=== PATIENT | female | born 1950 | race Caucasian/White ===

== ENCOUNTER 2016-10-14 15:41 | Observation (INO) | payer BC, OTHER ==
--- NOTE | ~2016-10-14 | HP ---
History And Physical [place] [id number] [facility] [place]. [address] NAME: JAYNA KEENE : 46 STATUS : ADM IN [facility]#: [id number] AGE: 65 ADM/REG DATE : 10/14/16 MR#: [id number] REPORT SERV DATE: 10/14/16 DICTATED BY: JAROCHO ENG DATE: 10/14/16 REPORT STATUS : Draft TRANSCRIBED BY: MODNicky DATE: 10/14/16 DATE OF ADMISSION: 10/14/2016 ADMISSION DIAGNOSIS: Unstable angina. HISTORY OF PRESENT ILLNESS: Ms. Keene is a 65-year-old female, who presented to the ER at the request of her outpatient physician today for evaluation of chest discomfort and an abnormal EKG. She has a medical history notable for hypertension, hyperlipidemia, former tobacco abuse, COPD, obstructive sleep apnea, and depression/anxiety/fibromyalgia and actually was admitted last month for similar symptoms. At which time, she was observed in the [facility] and underwent a stress test that demonstrated no ischemia, was interpreted as low risk. She has had chest discomfort, which she describes as both a sharp pressure and a sharp pain for the past several months, and it is worse in the past two weeks. It was progressive to the point where she decided that she needed it re-evaluated and upon seeing her physician in the outpatient setting today, had an EKG that demonstrated left bundle branch block. This was noted to be a new change from her prior study and given these findings, she was transferred to [facility] ED via ambulance. EKG confirmed a left bundle branch block upon her arrival here and we were consulted in this context. Since my arrival, the patient's initial troponins come back within normal limits. She did have some improvement in her chest pain with nitroglycerin paste, but has not completely resolved. She feels frustrated that this pain has been ongoing and like a definitive answer. She reports some nausea, but no shortness of breath, no diaphoresis, no palpitations; presyncope; or syncope. PAST MEDICAL HISTORY: 1. Hypertension. 2. Hyperlipidemia. 3. COPD, former tobacco abuse. 4. Sleep apnea. 5. GERD. 6. Anxiety. 7. Depression. 8. Fibromyalgia. 9. Migraines. 10.Osteoarthritis. 11.Osteoporosis. SURGICAL HISTORY: Includes appendectomy, cholecystectomy, partial mastectomy on the right for localized breast cancer, bilateral knee surgery, carpal tunnel surgery, hysterectomy, tonsillectomy. MEDICATIONS: Reviewed per medical record. ALLERGIES: MORPHINE, WHICH CAUSES HALLUCINATIONS. CODEINE, WHICH CAUSES ANAPHYLAXIS. History And Physical [address] [place]. [address] NAME: JAYNA KEENE : 46 STATUS : ADM IN PAT#: [id number] AGE: 65 ADM/REG DATE : 10/14/16 MR#: [id number] REPORT SERV DATE: 10/14/16 DICTATED BY: JAROCHO ENG DATE: 10/14/16 REPORT STATUS : Draft TRANSCRIBED BY: KENYATTA DATE: 10/14/16 FAMILY HISTORY: The patient's mother had heart failure that was diagnosed in her 50s. She in her 80s. SOCIAL HISTORY: The patient is a . She lives alone. She has a daughter, who is at bedside. She is a former tobacco user, quit approximately 20 years ago. She denies alcohol or illicit drugs. Independent in her ADLs. PHYSICAL EXAMINATION: VITAL SIGNS: Heart rate 70, blood pressure 120/80, respiratory rate 16. GENERAL: Overweight female, in no apparent distress. HEENT: Sclerae anicteric. Mucous members are moist. NECK: Supple. HEART: Regular rate and rhythm. No murmurs, rubs, or gallops. PULMONARY: Clear to auscultation bilaterally. ABDOMEN: Soft, nondistended, nontender. EXTREMITIES: Warm. No edema. LABORATORY DATA: Reviewed. Troponin less than 0.02. Potassium 3.8, creatinine 0.72, hemoglobin 11.4, TSH 1.63. EKG demonstrates sinus rhythm with left bundle branch block. Compared to prior EKG, these conduction system abnormalities are new. IMPRESSION/RECOMMENDATIONS: Chest discomfort at rest concerning for unstable angina. In light of the patient's clinical presentation and her recent stress test that was unremarkable, more definitive evaluation is appropriate and I have recommended cardiac catheterization. With her first normal troponin, I am doubtful that this represents acute coronary occlusion and therefore, we will perform cardiac cath in the a.m. unless her clinical status dictates earlier evaluation. We will start a heparin drip overnight in addition to aspirin and her home medications. I have discussed the risks, benefits, and alternatives including major and minor complications with the patient. She is agreeable to proceed. All questions were answered. VDM/MODL Jarocho Eng MD / [id number] CC: MD JASVIR Brewer WHITNEY L
[~2016-10-14 15:41] MED LIST: ABILIFY5 PO; ADVIL MIGRAINE PO; BENTYL20 PO; CYMBALTA60 PO; FLEX PO; LINZESS PO; MCZ25 PO; NEUR300 PO; NEXIUM40 PO; OXYCON10 PO; PCET PO; PERCOCET1 TA4 PO; PR25 PO; PRILOSEC40 MG PO; PRIN10 PO; REST15 PO; ROLAIDS PO; TRAZ100 PO; TRAZODONE150 MG PO; VENTOLIN HFA INH; XANAX1 MG PO; ZESTRIL20 MG PO
[2016-10-14] MEDS ORDERED: PERCOCET 10/3251 TAB PO (15:50)
[2016-10-14] MEDS ORDERED: MIRAPEX250 PO (15:50)
[2016-10-14] MEDS ORDERED: PRILOSEC40 MG PO (15:50)
[2016-10-14 15:51] LABS: BASOPHILS 0.5 %; BASOPHILS ABSOLUTE 0.03 10/3/uL (0.0-0.16); EOSINOPHILS 1.4 %; EOSINOPHILS ABSOLUTE 0.09 10/3/uL (0.0-0.53); ER CBC TAT 0 Hrs 08 Mins; HEMATOCRIT 35.3 % (36.0-48.0); HEMOGLOBIN 11.4 g/dL (12.0-16.0); LYMPHOCYTES 51.5 %; LYMPHOCYTES ABSOLUTE 3.26 10/3/uL (0.67-4.30); MEAN CORPUS HGB CONC 32.3 g/dL (32.0-36.0); MEAN CORPUSCULAR HEMOGLOB 27.7 pg (26.0-34.0); MEAN CORPUSCULAR VOLUME 85.7 fL (80-100); MEAN PLATELET VOLUME 10.5 fL (9.2-13.0); MONOCYTES 5.8 %; MONOCYTES ABSOLUTE 0.37 10/3/uL (0.21-1.20); NEUTROPHILS 40.8 %; NEUTROPHILS ABSOLUTE 2.58 10/3/uL (2.02-8.40); PLATELET COUNT 304 10/3/uL (150-400); RBC DISTRIBUTION WIDTH 14.3 % (12.0-16.0); RED CELL COUNT 4.12 10/6/uL (4.0-5.6); WHITE BLOOD CELLS 6.3 10/3/uL (4.5-10.5)
[2016-10-14] MEDS ORDERED: TRAZ50 PO (15:51)
[2016-10-14] MEDS ORDERED: FLEX PO (15:51)
[2016-10-14] MEDS ORDERED: PRIN20 PO (15:51)
[2016-10-14] MEDS ORDERED: BENTYL20 PO (15:51)
[2016-10-14 15:52] LABS: MANUAL DIFF NO %
[2016-10-14] MEDS ORDERED: VITAMIN PO (15:52)
[2016-10-14] MEDS ORDERED: VENTOLIN HFA PO (15:52)
[2016-10-14] MEDS ORDERED: TUMSROLL PO (15:53)
[2016-10-14 15:58] LABS: INTERNATIONAL NORMAL RATI 1.1 UNITS (-); PROTIME (NOT ORD) 13.7 SEC (12.0-14.5)
[2016-10-14 16:14] LABS: A/G RATIO 0.9 (0.7-1.9); ALBUMIN 3.5 G/DL (3.5-5.0); ALKALINE PHOSPHATASE 101 U/L (45-117); BUN (BLOOD UREA NITROGEN) 10 MG/DL (6-23); CALCIUM, SERUM 9.6 MG/DL (8.5-10.4); CHLORIDE, SERUM 105 MMOL/L (96-112); CO2 (CARBON DIOXIDE) 29 MMOL/L (24-34); GFR AFRICAN AMERICAN 104 ML/MIN (>=60); GFR NON AFRICAN AMERICAN 90 ML/MIN (>=60); GLOBULIN 3.7 G/DL (2.5-4.1); GLUCOSE, SERUM 89 MG/DL (60-99); POTASSIUM, SERUM 3.8 MMOL/L (3.5-5.3); SGOT(AST) 14 U/L (5-40); SGPT(ALT) 26 U/L (5-65); SODIUM, SERUM 140 MMOL/L (135-148); TOTAL BILIRUBIN 0.3 MG/DL (0-1.2); TOTAL PROTEIN 7.2 G/DL (6.0-8.5); TROPONIN I <0.02 NG/ML (<0.05)
[2016-10-15 06:20] LABS: BASOPHILS 0.4 %; BASOPHILS ABSOLUTE 0.03 10/3/uL (0.0-0.16); EOSINOPHILS 2.2 %; EOSINOPHILS ABSOLUTE 0.16 10/3/uL (0.0-0.53); HEMATOCRIT 33.7 % (36.0-48.0); HEMOGLOBIN 10.9 g/dL (12.0-16.0); IMMATURE GRANULOCYTES 0.1 %; IMMATURE GRANULOCYTES ABSOLUTE 0.01 10/3/uL (0.0-0.11); LYMPHOCYTES ABSOLUTE 4.25 10/3/uL (0.67-4.30); MEAN CORPUS HGB CONC 32.3 g/dL (32.0-36.0); MEAN CORPUSCULAR HEMOGLOB 28.5 pg (26.0-34.0); MEAN PLATELET VOLUME 10.8 fL (9.2-13.0); MONOCYTES 5.1 %; MONOCYTES ABSOLUTE 0.37 10/3/uL (0.21-1.20); NEUTROPHILS 33.2 %; NEUTROPHILS ABSOLUTE 2.38 10/3/uL (2.02-8.40); PLATELET COUNT 274 10/3/uL (150-400); RBC DISTRIBUTION WIDTH 14.3 % (12.0-16.0); RED CELL COUNT 3.83 10/6/uL (4.0-5.6); WHITE BLOOD CELLS 7.2 10/3/uL (4.5-10.5)
[2016-10-15 06:21] LABS: INTERNATIONAL NORMAL RATI 1.1 UNITS (-); MANUAL DIFF NO %
[2016-10-15 06:26] LABS: PARTIAL THROMBO TIME 129.5 SEC (22.5-37.2)
[2016-10-15 06:31] LABS: CALCIUM, SERUM 8.8 MG/DL (8.5-10.4); CHLORIDE, SERUM 105 MMOL/L (96-112); CHOL/HDL RATIO(NOT ORDER) 4.6 (0-5); CHOLESTEROL 215 MG/DL (< 200); CO2 (CARBON DIOXIDE) 28 MMOL/L (24-34); CREATININE 0.75 MG/DL (0.55-1.02); GFR AFRICAN AMERICAN 96 ML/MIN (>=60); GFR NON AFRICAN AMERICAN 82 ML/MIN (>=60); HDL CHOLESTEROL 47 MG/DL (> 49); LDL CHOLESTEROL 120 MG/DL (< 130); NON-HDL CHOLESTEROL 168 MG/DL (< 160); POTASSIUM, SERUM 3.7 MMOL/L (3.5-5.3); SGPT(ALT) 22 U/L (5-65); SODIUM, SERUM 140 MMOL/L (135-148); TRIGLYCERIDE 242 MG/DL (< 150); TROPONIN I <0.02 NG/ML (<0.05)
[2016-10-15 06:33] LABS: BUN (BLOOD UREA NITROGEN) 14 MG/DL (6-23); GLUCOSE, SERUM 111 MG/DL (60-99)
[2016-10-15] MEDS ORDERED: ASAB PO (17:17)
[2016-10-15] MEDS ORDERED: LIPITOR40 PO (17:17)
[2016-10-15] MEDS ORDERED: IMDUR30 PO (17:17)
[2017-04-17] MEDS ORDERED: MYRBETRIQ50 MG PO (09:07)
[2017-04-17] MEDS ORDERED: PR25 PO (09:08)
[2017-04-17] MEDS ORDERED: VIST25 PO (09:10)
[2017-04-17] MEDS ORDERED: MCZ25 PO (09:13)
[2017-04-17] MEDS ORDERED: PROAIR HFA INH (09:14)
[2017-04-17] MEDS ORDERED: VIACTIV PO (09:14)
== END 2016-10-15 17:46 | disposition home or self-care (01) ==
LOC: ER 15:41 → 5NO 18:57
PROVIDERS: Emergency Medicine; Nurse Practitioner Family
PROC: 4A023N7 Measurement of Cardiac Sampling and Pressure, Left Heart, Percutaneous Approach (ICD-10-PCS; principal; 2016-10-14)
PROC: B2111ZZ Fluoroscopy of Multiple Coronary Arteries using Low Osmolar Contrast (ICD-10-PCS; 2016-10-14)
PROC: B2151ZZ Fluoroscopy of Left Heart using Low Osmolar Contrast (ICD-10-PCS; 2016-10-14)
DX: I25.110 Atherosclerotic heart disease of native coronary artery with unstable angina pectoris (principal); I10 Essential (primary) hypertension; I44.7 Left bundle-branch block, unspecified; E78.5 Hyperlipidemia, unspecified; J44.9 Chronic obstructive pulmonary disease, unspecified; J45.909 Unspecified asthma, uncomplicated; F32.9 Major depressive disorder, single episode, unspecified; F41.9 Anxiety disorder, unspecified; M79.7 Fibromyalgia; K21.9 Gastro-esophageal reflux disease without esophagitis; G47.30 Sleep apnea, unspecified; M19.90 Unspecified osteoarthritis, unspecified site; M81.0 Age-related osteoporosis without current pathological fracture; Z82.49 Family history of ischemic heart disease and other diseases of the circulatory system; Z87.891 Personal history of nicotine dependence; Z90.49 Acquired absence of other specified parts of digestive tract; Z90.11 Acquired absence of right breast and nipple; Z90.710 Acquired absence of both cervix and uterus; Z98.890 Other specified postprocedural states; Z88.5 Allergy status to narcotic agent; Z79.899 Other long term (current) drug therapy
CPT/HCPCS: 71010; 80048; 80053; 80061; 84443; 84460; 84484; 85025; 85610; 85730; 93005; 93458; 96372; 96374; 96375; 96376; 99152; 99153; 99285; A9270-GY; C1769; C1887; C1894; G0378; J1170; J2250; J2405; J3010; Q9967